=== PATIENT | female | born 1955 | race Asian ===

== ENCOUNTER 2017-02-07 14:01 | Outpatient (CLI) | payer OTHER | END 2017-02-07 16:18 | disposition home or self-care (01) | LOC: DCC 14:01 | DX: M54.5 Low back pain (principal); E11.9 Type 2 diabetes mellitus without complications; I10 Essential (primary) hypertension; E78.5 Hyperlipidemia, unspecified; Z79.84 Long term (current) use of oral hypoglycemic drugs; Z79.4 Long term (current) use of insulin | CPT/HCPCS: G0463 ==

== ENCOUNTER 2017-02-21 13:55 | Outpatient (CLI) | payer OTHER | END 2017-02-21 16:40 | disposition home or self-care (01) | LOC: DCC 13:55 | DX: M54.5 Low back pain (principal); E11.9 Type 2 diabetes mellitus without complications; E78.5 Hyperlipidemia, unspecified; I10 Essential (primary) hypertension; Z79.4 Long term (current) use of insulin | CPT/HCPCS: G0463 ==